=== PATIENT | male | born 1965 | race Caucasian/White ===

== ENCOUNTER 2016-12-18 13:32 | Outpatient (CLI) | payer OTHER | END 2016-12-18 13:33 | disposition home or self-care (01) | LOC: SC 13:32 | PROVIDERS: ATTEND Nurse Practitioner Family | DX: G47.33 Obstructive sleep apnea (adult) (pediatric) (principal) | CPT/HCPCS: 99212; 99214 ==

== ENCOUNTER 2017-04-05 14:38 | Emergency (ER) | payer OTHER ==
--- NOTE | 2017-04-05 14:57 | ED Physician Documentation ---
PD HPI ABD PAIN - Stated complaint Stated Complaint: ABD PX - Chief complaint Chief Complaint: Abd Pain - History obtained from History obtained from: Patient - History of Present Illness Timing - onset: Other (Developed left flank pain 6 days ago that has migrated to the left abdomen associated with mild nausea. Pain is mild narrowing declines pain medications but it has been severe. He notes no dysuria, hematuria, or constipation. No fevers. No history of renal colic.) Review of Systems Ten Systems: 10 systems reviewed and negative Constitutional: reports: Reviewed and negative Throat: denies: Dental pain / toothache, Sore throat Cardiac: denies: Chest pain / pressure, Palpitations Respiratory: denies: Dyspnea, Cough PD PAST MEDICAL HISTORY - Past Medical History Past Medical History: Yes Cardiovascular: Hypertension - Present Medications Home Medications: Ambulatory Orders Medication Instructions Recorded Confirmed HYDROcod/ACETAM 5/325 [[place] 5/325] 1 - 2 ea PO Q6H PRN #10 tablet 04/05/17 Simvastatin 20 mg PO DAILY 04/05/17 04/05/17 hydroCHLOROthiazide 25 mg PO DAILY 04/05/17 04/05/17 [Hydrochlorothiazide] - Allergies Allergies/Adverse Reactions: Allergies Allergy/AdvReac Type Severity Reaction Status Date / Time No Known Drug Allergies Allergy Verified 04/05/17 14:49 - Living Situation Living Situation: reports: With family - Social History Does the pt smoke?: No Does the pt have substance abuse?: No - Family History Family history: reports: Non contributory PD ED PE NORMAL - Vitals Vital signs reviewed: Yes - General General: Alert and oriented X 3, No acute distress - Cardiac Cardiac: RRR, No murmur - Respiratory Respiratory: No respiratory distress, Clear bilaterally - Abdomen Abdomen: Normal bowel sounds, Soft, Non tender - Back Back: No CVA TTP, No spinal TTP - Derm Derm: Normal color, Warm and dry - Extremities Extremities: No edema, No calf tenderness / cord - Neuro Neuro: Alert and oriented X 3, Normal speech - Psych Psych: Normal mood, Normal affect Results - Vitals Vitals: Vital Signs - 24 hr 04/05/17 04/05/17 14:46 15:49 Temperature 36.2 C L Heart Rate 89 86 Respiratory 18 14 Rate Blood Pressure 130/94 H 91/42 L O2 Saturation 99 96 Oxygen O2 Source Room air - Labs Labs: Laboratory Tests 04/05/17 04/05/17 04/05/17 14:15 15:28 15:28 WBC 9.9 RBC 5.39 Hgb 16.6 Hct 48.7 MCV 90.4 MCH 30.8 MCHC 34.1 RDW 12.8 Plt Count 194 MPV 7.7 Neut # 6.8 H Lymph # 2.4 [place] # 0.5 Eos # 0.0 Baso # 0.0 Absolute Nucleated RBC 0.00 Nucleated RBC % 0.0 Sodium 140 Potassium 3.7 Chloride 103 Carbon Dioxide 29 Anion Gap 8.0 BUN 21 H Creatinine 1.2 Estimated GFR (MDRD) 63 L Glucose 102 H Calcium 9.4 Total Bilirubin 0.3 AST 20 ALT 34 Alkaline Phosphatase 59 Total Protein 7.4 Albumin 4.4 Globulin 3.0 Albumin/Globulin Ratio 1.5 Lipase 19 L Urine Color YELLOW Urine Clarity CLEAR Urine pH 6.0 Ur Specific [place] 1.025 Urine Protein NEGATIVE Urine Glucose (UA) NEGATIVE Urine Ketones NEGATIVE Urine Occult Blood NEGATIVE Urine Nitrite NEGATIVE Urine Bilirubin NEGATIVE Urine Urobilinogen 0.2 (NORMAL) Ur Leukocyte Esterase NEGATIVE Ur Microscopic Review NOT INDICATED Urine Culture Comments NOT INDICATED PD MEDICAL DECISION MAKING - ED course ED course: 52-year-old gentleman with migratory flank pain most consistent with renal colic. No shingles rash. Examination of the abdomen is benign. CT is without evidence of renal colic and he has no hematuria. His labs are basically normal. I did discuss the incidental finding regarding the iliac bone with him and his family and follow-up was advised. 1 of the techs did document a blood pressure of 91/46, I was in the room shortly after this and repeated it, it was 136/76 I think that first reading was erroneous. Departure - Departure Disposition: 01 Home, Self Care Clinical Impression: Flank pain, acute Condition: Good Record reviewed to determine appropriate education?: Yes Instructions: ED Abdominal Pain Unkn Cause Prescriptions: HYDROcod/ACETAM 5/325 [[place] 5/325] 1 - 2 ea PO Q6H PRN #10 tablet PRN Reason: Pain Comments: Follow-up with your doctor, next available appointment. Discuss the abnormal CT with left posterior iliac bone sclerosis, she may want to perform further imaging on this, but as discussed I do not think it is related to your pain today which seems muscular. Return if worse or if any new symptoms develop, especially a rash over the area , fever, or vomiting.
[2017-04-05 15:14] LABS: BILIRUBIN,URINE NEGATIVE (NEGATIVE)
[2017-04-05 15:16] LABS: UA CHARGE (STRIP ONLY) YES; UR CULTURE IF IND NOT INDICATED
[2017-04-05 15:39] LABS: BASOPHILS % (AUTO) 0.4 %; EOSINOPHILS % (AUTO) 0.5 %; HCT - HEMATOCRIT 48.7 % (42.0-52.0); HGB - HEMOGLOBIN 16.6 g/dL (14.0-18.0); LYMPHOCYTES # (AUTO) 2.4 10^3/uL (1.5-3.5); LYMPHOCYTES % (AUTO) 24.7 %; MEAN CORPUSCULAR HEMOGLOBIN 30.8 pg (27.0-31.0); MEAN CORPUSCULAR HGB CONC 34.1 g/dL (32.0-36.0); MEAN CORPUSCULAR VOLUME 90.4 fL (80.0-94.0); MEAN PLATELET VOLUME 7.7 fL (7.4-11.4); MONOCYTES # (AUTO) 0.5 10^3/uL (0.0-1.0); MONOCYTES % (AUTO) 5.5 %; NEUTROPHILS # (AUTO) 6.8 10^3/uL (1.5-6.6); NEUTROPHILS % (AUTO) 68.9 %; RED BLOOD COUNT 5.39 10^6/uL (4.70-6.10); RED CELL DISTRIBUTION WIDTH 12.8 % (12.0-15.0); UNCORRECTED WHITE BLOOD COUNT 9.9 x10^3/uL; WHITE BLOOD COUNT 9.9 x10^3/uL (4.8-10.8)
--- NOTE | 2017-04-05 15:50 | CT Preliminary Report ---
Exam: CT ABDOMEN/PELVIS W/O IMPRESSION: 1. No calculi or evidence of obstruction along the genitourinary tracts. Within the limits of noncont rast examination, no alternate acute process identified to explain left-sided flank pain. 2. Ill-defined sclerosis in the left posterior iliac bone, nonspecific appearance. Please correlate w ith patient history. [facility] SITE ID: [id number]
[2017-04-05 15:51] LABS: ALBUMIN/GLOBULIN RATIO 1.5 (1.0-2.2); BILIRUBIN,TOTAL 0.3 mg/dL (0.2-1.0); CALCIUM 9.4 mg/dL (8.5-10.3); CREATININE 1.2 mg/dL (0.6-1.2); POTASSIUM 3.7 mmol/L (3.5-5.0); TOTAL PROTEIN 7.4 g/dL (6.7-8.2)
--- NOTE | 2017-04-05 15:53 | CT Report ---
EXAM: CT ABDOMEN AND PELVIS (CT KUB) EXAM DATE: 04/05/2017 03:13 PM. CLINICAL HISTORY: Left flank pain COMPARISONS: None. TECHNIQUE: Routine axial helical CT imaging was performed through the abdomen and pelvis without IV c ontrast. Reconstructions: Coronal and sagittal. In accordance with CT protocol optimization, one or more of the following dose reduction techniques w ere utilized for this exam: automated exposure control, adjustment of mA and/or KV based on patient s ize, or use of iterative reconstructive technique. FINDINGS: Lung Bases: Linear atelectasis or scarring in the right lower lobe base and inferior lingula. Right Kidney/Ureter: No stones, hydronephrosis, or hydroureter. No perinephric fat stranding. Left Kidney/Ureter: No stones, hydronephrosis, or hydroureter. No perinephric fat stranding. Other Solid Organs: Noncontrast images of the solid organs are grossly unremarkable. Gallbladder/Bile Ducts: Unremarkable. No visualized shadowing stones or hydronephrosis. Peritoneal Cavity: The bowel is grossly unremarkable, without evident focal wall thickening or adjace nt mesenteric fat stranding to suggest acute inflammatory process, or evidence of bowel obstruction. The appendix is normal. No free fluid, pneumoperitoneum, or tatiana adenopathy. Pelvic Organs: No bladder stones or wall thickening. Noncontrast images of the visualized pelvic orga ns are unremarkable. Vasculature: Trace atherosclerotic calcifications in the right common iliac and bilateral internal il iac arteries. Otherwise unremarkable. Bones: Ill-defined sclerosis in the left posterior iliac bone. Ibbw-[id number]-[id number] multilevel degenerati ve disk disease. Other: Tiny fat-containing umbilical hernia. IMPRESSION: 1. No calculi or evidence of obstruction along the genitourinary tracts. Within the limits of noncont rast examination, no alternate acute process identified to explain left-sided flank pain. 2. Ill-defined sclerosis in the left posterior iliac bone, nonspecific appearance. Please correlate w ith patient history. [facility] Referring Provider Line: [phone] SITE ID: [id number]
[2017-04-05] MEDS ORDERED: KETOROLAC 60 MG/2 ML VIAL IVP STA (16:11)
[2017-04-05] MEDS ORDERED: KETOROLAC 30 MG/ML VIAL ONE (16:36)
[2017-04-05 16:44] VITALS: BP 137/99
== END 2017-04-05 16:49 | disposition home or self-care (01) ==
LOC: ED 14:38
DX: R10.32 Left lower quadrant pain (principal); I10 Essential (primary) hypertension
CPT/HCPCS: 36415; 74176; 80053; 81001; 81003; 83690; 85025; 87086; 96374; 99283; 99284

== ENCOUNTER 2017-07-09 13:39 | Outpatient (CLI) | payer OTHER | END 2017-07-09 13:40 | disposition home or self-care (01) | LOC: SC 13:39 | PROVIDERS: ATTEND Nurse Practitioner Family | DX: G47.33 Obstructive sleep apnea (adult) (pediatric) (principal) | CPT/HCPCS: 99212; 99214 ==

== ENCOUNTER 2018-07-20 15:24 | Outpatient (CLI) | payer OTHER | END 2018-07-20 15:25 | disposition home or self-care (01) | LOC: SC 15:24 | PROVIDERS: ATTEND Nurse Practitioner Family | DX: G47.33 Obstructive sleep apnea (adult) (pediatric) (principal) | CPT/HCPCS: 99212; 99214 ==

== ENCOUNTER 2020-08-15 16:22 | Outpatient (CLI) | payer OTHER ==
--- NOTE | 2020-08-15 16:59 | SLEEP CARE CONSULTATION ---
Information from patient questionnaire entered by Javier Hernandez. I have reviewed and concur with the information entered by Javier Hernandez. This document represents the service I personally performed and the decisions made by , Susan Norman ARNP. History of Present Illness Service Date and Time: 08/15/2020 1622 Previous diagnosis: Mild, Severe, Obstructive Sleep Apnea-Hypopnea Syndrome, Central Sleep Apnea-Hypopnea Syndrome AHI: 51.8 Reason for follow up: annual (Last seen 08/2019) Equipment type: CPAP Equipment obtained from: [employer] ([place]; getting supplies as needed) Mask style: Nasal (over the nose) Backup mask available: Yes (old mask) Last cushion change: 10 days ago Year and Where: 2015 [facility] additional information: MAGALY KELLER was diagnosed to have mild/severe, AHI 51.8, obstructive/central sleep apnea-hypopnea syndrome and returned today for CPAP therapy annual follow- up. CPAP Compliance Data - Data Reviewed with Patient Average duration of nightly device use: 4 hours 26 minutes Compliance rate %: 76.1 Current pressure setting (cmH2O): 10 Average residual AHI: 2.9 Central apnea: 1.5 Obstructive apnea: 0.4 Hypopnea: 1.0 Average large leak: 2 seconds Subjective Patient concerns: reports: air blowing in eyes (improves with replaces mask for new one). denies: aerophagia, mask discomfort, mask leak noise, condensation in mask/hose, nasal congestion, dry mouth, nose, throat, epistaxis, other Observed to snore while using device: No Current pressure setting perceived as: comfortable On therapy, patient: reports: sleeping better, awakening more refreshed, being more awake and alert during the day, more rested overall. denies: drowsiness while driving Initial [place] Sleepiness Scale score: 13 (in 2016) Current [place] Sleepiness Scale score: 9 Allergies and Home Medications Home medication list reviewed: Yes (no new medications) Review of Systems Review of systems same as previous: Yes (no changes) Physical Exam Heart Rate: 91 O2 Saturation: 96 Height: 5 ft 9 in Weight: 238 lb Weight change since last visit: 10 gain Body Mass Index: 35.1 BMI Classification: Obese Impression and Plan 1. Obstructive/Central Sleep Apnea-Hypopnea Syndrome, mild/severe, with fair treatment compliance and good apnea control. On CPAP therapy, the patient has better sleep quality and is more rested overall. He gets air leaks when time to change out his mask. He has not been washing his mask daily. Mask leaks can be reduced by washing mask daily and changing mask cushions more frequently to improve mask seal and comfort. Patient has gained weight. Currently patients BMI is 35.1. Obesity increases the risk of apnea, CPAP pressure requirements and overall health risks especially cardiovascular and diabetes. Thus patient is advised to lose weight. Weight loss can be done with reducing portion size, reducing refined foods and balancing content with vegetables, fruit and whole grain foods. He voiced understanding. Patient's apnea severity and rationale for treatment to reduce apnea, improve sleep quality and reduce cardiovascular and cerebrovascular events was reviewed. I also reviewed the benefit of consistent device use of CPAP for hypertension and migraines. * Continue auto CPAP pressure at 10 cmH2O * Notify me if snoring with mask or feeling that the pressure is too much or too little * Attempt to lose weight * Call this office if any problems using CPAP * Return for follow up in 1 year, or sooner if concerns arise Counseling Topics: Spare mask, Weight loss health impact Visit Type: In Office Time Spent with Patient (minutes): 17 Provider Statement: I spent 100% of the Face to Face Visit with the patient with greater than 50% spent counseling the patient and coordination of care.
== END 2020-08-15 16:23 | disposition home or self-care (01) ==
LOC: SC 16:22
PROVIDERS: ATTEND Nurse Practitioner Family
DX: G47.33 Obstructive sleep apnea (adult) (pediatric) (principal); G47.31 Primary central sleep apnea; E66.9 Obesity, unspecified; Z68.35 Body mass index [BMI] 35.0-35.9, adult
CPT/HCPCS: 99212

== ENCOUNTER 2021-01-23 04:23 | Emergency (ER) | payer OTHER ==
[2021-01-23] MEDS ORDERED: SODIUM CHLORIDE 0.9% 1,000 ML IV STA (04:55)
--- NOTE | 2021-01-23 04:59 | ED Physician Documentation ---
History of Present Illness - Stated complaint Stated Complaint: HIGH BP/HR, DIZZY, NAUSEA - Chief complaint Chief Complaint: Cardiac - History obtained from History obtained from: Patient - Additonal information Additional information: 55-year-old man with history of diabetes, high blood pressure, sleep apnea presents with multiple episodes of lightheadedness, nausea, and feeling of the left side of his head being different from the right side starting at 3 AM. Patient states he went to bed at 930 feeling okay and woke up at 2 AM, began to feel his symptoms around 3 and took his blood pressure 4 5 times it was mildly elevated with systolic blood pressure in the 140s 150s. His heart rate was in the 120s so he came to the hospital. Denies chest pain, shortness of breath, fever, sick contacts, neck pain or headache. He did have a 9 out of 10 headache yesterday in the bilateral occipital area that resolved on its own. At the patient started Metformin 3 weeks ago and initially had an upset stomach related to it that resolved. +vaccinated against covid-19. no known exposure/sick contacts. Review of Systems Ten Systems: 10 systems reviewed and negative Constitutional: denies: Fever, Chills Eyes: denies: Decreased vision, Photophobia Cardiac: denies: Chest pain / pressure Respiratory: denies: Dyspnea GI: reports: Nausea. denies: Abdominal Pain, Vomiting, Diarrhea Musculoskeletal: denies: Neck pain Neurologic: reports: Headache, Other (Sensation of the left side of the head being different from the right side) PD PAST MEDICAL HISTORY - Past Medical History Cardiovascular: Hypertension - Past Surgical History Past Surgical History: No - Present Medications Home Medications: Ambulatory Orders Medication Instructions Recorded Confirmed HYDROcod/ACETAM 5/325 [[place] 5/325] 1 - 2 ea PO Q6H PRN #10 tablet 04/05/17 Simvastatin 20 mg PO DAILY 04/05/17 04/05/17 hydroCHLOROthiazide 25 mg PO DAILY 04/05/17 04/05/17 [Hydrochlorothiazide] - Allergies Allergies/Adverse Reactions: Allergies Allergy/AdvReac Type Severity Reaction Status Date / Time No Known Drug Allergies Allergy Verified 04/05/17 14:49 - Social History Does the pt smoke?: No Smoking Status: Never smoker Does the pt drink ETOH?: No Does the pt have substance abuse?: No - Immunizations Immunizations are current?: Yes PD ED PE NORMAL - Vitals Vital signs reviewed: Yes - General General: Alert and oriented X 3, No acute distress, Well developed/nourished - HEENT HEENT: Atraumatic, PERRL, EOMI, Ears normal, Moist mucous membranes, Pharynx benign - Neck Neck: Supple, no meningeal sign - Cardiac Cardiac: RRR - Respiratory Respiratory: No respiratory distress, Clear bilaterally - Abdomen Abdomen: Non tender, Non distended - Derm Derm: Normal color, Warm and dry - Extremities Extremities: No deformity - Neuro Neuro: Alert and oriented X 3, advertising copy writer 2-12 intact, No motor deficit, No sensory deficit, Normal speech, Other (Cerebellar testing, gait, strength within normal limits) Results - Vitals Vitals: Vital Signs - 24 hr 01/23/21 01/23/21 01/23/21 04:38 04:40 05:22 Temperature 35.8 C L Heart Rate 103 H 89 Heart Rate [ 102 H Sitting] Heart Rate [ Standing] Heart Rate [ Supine] Respiratory 18 18 Rate Blood Pressure 151/94 H 132/93 H Blood Pressure 129/94 H [Sitting] Blood Pressure [Standing] Blood Pressure [Supine] O2 Saturation 96 97 01/23/21 01/23/21 05:23 05:56 Temperature Heart Rate 88 Heart Rate [ Sitting] Heart Rate [ 103 H Standing] Heart Rate [ 92 Supine] Respiratory 12 Rate Blood Pressure 138/102 H Blood Pressure [Sitting] Blood Pressure 138/102 H [Standing] Blood Pressure 135/88 H [Supine] O2 Saturation 95 Oxygen O2 Source Room air - EKG (time done) 0434 Rate: Rate (enter#) (97) Rhythm: NSR [place]: Normal Intervals: Normal OK QRS: Normal Ischemia: Normal ST segments - Labs Labs: Laboratory Tests 01/23/21 01/23/21 05:00 05:00 WBC 7.9 RBC 5.39 Hgb 16.6 Hct 49.9 MCV 92.6 MCH 30.8 MCHC 33.3 RDW 12.9 Plt Count 210 MPV 9.4 Neut # (Auto) 6.0 Lymph # (Auto) 1.3 L [place] # (Auto) 0.4 Eos # (Auto) 0.1 Baso # (Auto) 0.0 Absolute Nucleated RBC 0.00 Nucleated RBC % 0.0 Sodium 143 Potassium 3.7 Chloride 102 Carbon Dioxide 27 Anion Gap 14.0 H BUN 21 H Creatinine 1.2 Estimated GFR (MDRD) 62 L Glucose 129 H Calcium 9.4 Total Bilirubin 0.7 AST 20 ALT 32 Alkaline Phosphatase 54 Total Protein 7.1 Albumin 4.6 Globulin 2.5 Albumin/Globulin Ratio 1.8 Lipase 29 PD MEDICAL DECISION MAKING - ED course Complexity details: re-evaluated patient ED course: 55-year-old man presents with concerns about headache, lightheadedness, nausea and sensation of the left side of his head being different from the right side. No objective neurological deficits, normal physical exam. Vital signs within normal limits with the exception of borderline tachycardia to 104 intermittently. He had routine bloodwork 1 month ago, but since he has new symptoms since then and is extremely anxious about them I offered repeat bloodwork which he accepted. Patient also extremely concerned about his brain and requested further workup including head CT which I will oblige. Patient declined pain meds, stating he has no headache at present. also declined nausea meds. On reevaluation, patient still declining medications. discussed that his labwork and head CT is unremarkable. Patient now concerned he has a blood clot. He denies hemoptysis, SOA, CP, pleurisy, leg swelling, calf pain, bedrest, hormone use, active cancer, recent surgery, or travel. He does however have intermittent tingling/burning in the left lateral thigh and tremor in the left hand intermittent for the past year. I told him he is unlikely to have a blood clot at this time. Patient ambulatory to the bathroom and stating he feels terrible and thinks he's going to pass out. Last echo 6 years ago. d/w Dr. Guerin for possible observation for echo. Dr. Guerin at bedside, d/w patient and possibility of vertigo or atypical migraine as etiology of symptoms. Dr. Guerin feels noncardiac and not a candidate for observation at this time. Patient still very concerned but agreeable to trial meclizine and toradol and if no improvement we will reconsult hospitalist for observation admission. Patient endorsed to Dr. Howard, incoming daytime MD for further management and care. Departure - Departure Clinical Impression: Nausea, Dizziness
[2021-01-23 05:10] LABS: BASOPHILS % (AUTO) 0.4 %; EOSINOPHILS # (AUTO) 0.1 10^3/uL (0.0-0.7); EOSINOPHILS % (AUTO) 0.9 %; HCT - HEMATOCRIT 49.9 % (42.0-52.0); HGB - HEMOGLOBIN 16.6 g/dL (14.0-18.0); LYMPHOCYTES # (AUTO) 1.3 10^3/uL (1.5-3.5); MEAN CORPUSCULAR HEMOGLOBIN 30.8 pg (27.0-31.0); MEAN CORPUSCULAR HGB CONC 33.3 g/dL (32.0-36.0); MEAN CORPUSCULAR VOLUME 92.6 fL (80.0-94.0); MEAN PLATELET VOLUME 9.4 fL (7.4-11.4); MONOCYTES # (AUTO) 0.4 10^3/uL (0.0-1.0); MONOCYTES % (AUTO) 5.1 %; NEUTROPHILS % (AUTO) 76.3 %; PLT - PLATELET COUNT 210 10^3/uL (130-450); RED BLOOD COUNT 5.39 10^6/uL (4.70-6.10); RED CELL DISTRIBUTION WIDTH 12.9 % (12.0-15.0); WHITE BLOOD COUNT 7.9 x10^3/uL (4.8-10.8)
[2021-01-23 05:24] LABS: ALBUMIN 4.6 g/dL (3.2-5.5); ALBUMIN/GLOBULIN RATIO 1.8 (1.0-2.2); BILIRUBIN,TOTAL 0.7 mg/dL (0.2-1.0); CALCIUM 9.4 mg/dL (8.5-10.3); CREATININE 1.2 mg/dL (0.6-1.2); POTASSIUM 3.7 mmol/L (3.5-5.0); TOTAL PROTEIN 7.1 g/dL (6.7-8.2)
[2021-01-23] MEDS ORDERED: MECLIZINE 12.5 MG TABLET PO STA (06:38)
[2021-01-23] MEDS ORDERED: KETOROLAC 15 MG/ML VIAL IVP STA (06:39)
--- NOTE | 2021-01-23 08:12 | CT Report ---
PROCEDURE: HEAD WO INDICATIONS: Severe headache (02/15). TECHNIQUE: Noncontrast 4.5 mm thick angled axial sections acquired from the foramen magnum to the vertex. For r adiation dose reduction, the following was used: automated exposure control, adjustment of mA and/or kV according to patient size. COMPARISON: None. FINDINGS: Image quality: Excellent. CSF spaces: Basal cisterns are patent. No extra-axial fluid collections. Ventricles are normal in size and shape. Brain: No midline shift. No intracranial masses or hemorrhage. Saunders-white matter interface is norm al. Skull and face: Calvarium and visualized facial bones are intact, without suspicious lesions. Sinuses: Visualized sinuses and mastoids are clear. IMPRESSION: No acute intracranial finding. No significant change from preliminary report. Reviewed by: Elfego Rizo MD on 01/23/2021 8:10 AM PDT Approved by: Elfego Rizo MD on 01/23/2021 8:10 AM PDT Station ID: [id number]
[2021-01-23 08:40] LABS: CORONAVIRUS 229E-RESP PCR NOT DETECTED; CORONAVIRUS HKU1-RESP PCR NOT DETECTED; CORONAVIRUS NL63-RESP PCR NOT DETECTED; CORONAVIRUS OC43-RESP PCR NOT DETECTED; HUMAN METAPNEUMOVIRUS NOT DETECTED; RHINOVIRUS/ENTEROVIRUS NOT DETECTED; SARS-CoV-2 -RESP PCR PANEL NOT DETECTED
[2021-01-23 08:41] LABS: B. PARAPERTUSSIS- RESP PCR PAN NOT DETECTED; B. PERTUSSIS- RESP PCR PANEL NOT DETECTED; C. PNEUMONIAE- RESP PCR PANEL NOT DETECTED; INFLUENZA A- RESP PCR PANEL NOT DETECTED; INFLUENZA B - RESP PCR PANEL NOT DETECTED; M. PNEUMONIAE- RESP PCR PANEL NOT DETECTED; PARAINFLUENZA VIRUS 1 NOT DETECTED; PARAINFLUENZA VIRUS 2 NOT DETECTED; PARAINFLUENZA VIRUS 3 NOT DETECTED; PARAINFLUENZA VIRUS 4 NOT DETECTED; RSV- RESP PCR PANEL NOT DETECTED
[2021-01-23 08:42] VITALS: BP 138/90
== END 2021-01-23 09:32 | disposition home or self-care (01) ==
LOC: ED 04:23
DX: R42 Dizziness and giddiness (principal); R11.0 Nausea; E11.9 Type 2 diabetes mellitus without complications; I10 Essential (primary) hypertension; Z20.822 Contact with and (suspected) exposure to COVID-19
CPT/HCPCS: 0202U; 36415; 70450; 80053; 83690; 83880; 85025; 96374; 99284; A9270

== ENCOUNTER 2021-10-07 14:46 | Outpatient (CLI) | payer OTHER ==
[2021-10-07 15:38] VITALS: BP 126/84
--- NOTE | 2021-10-07 15:38 | SLEEP CARE CONSULTATION ---
Information from patient questionnaire entered by Radha Bush. I have reviewed and concur with the information entered by Radha Bush. This document represents the service I personally performed and the decisions made by me, Estephania Bonner MD, [facility]. History of Present Illness Service Date and Time: 10/07/2021 1446 Previous diagnosis: Mild, Severe, Obstructive Sleep Apnea-Hypopnea Syndrome, Central Sleep Apnea-Hypopnea Syndrome AHI: 51.8 Reason for follow up: annual (LAST SEEN ON 08/15/2020) Equipment type: CPAP Equipment obtained from: [employer] ([place]; getting supplies as needed) Mask style: Nasal (over the nose) Year and Where: 2015 [facility] HPI additional information: Mr. Roblero was diagnosed to have severe obstructive sleep apnea-hypopnea syndrome and returns today for follow up of CPAP therapy. The patient purchased the device from [employer] but is getting supplies from [employer]. He was fitted with a nasal mask. He uses the device nightly and all through the night. The compliance report shows that he uses the device 138 nights out of the past 180 nights, averaging 4.5 hours a night. The > 4 hour compliance rate for the past 30 days is 67%. He complains of no particular problem with the device such as soreness on the face, dry nose, epistaxis, nasal congestion or headache. He thinks that the pressure of 10 cmH2O is comfortable. On the CPAP therapy he notices improvement in his sleep quality, and that he wakes up feeling fresher in the morning and more awake/alert during the day. His notices no snore at all. [place] Sleepiness Scale score is 5. The average residual AHI is 3.6; and average time in large leak per day is 2 seconds a night. Sleep Study - Results Year and Where: 2015 [facility] Subjective Initial [place] Sleepiness Scale score: 13 (in 2016) Allergies and Home Medications Drug allergies reviewed: Yes Home medication list reviewed: Yes Allergy and home medication list: Allergies No Known Drug Allergies Allergy (Verified 04/05/17 14:49) Review of Systems Review of systems same as previous: Yes Physical Exam Vital signs obtained and entered by: Gil BUSH MA Blood Pressure: 126/84 (MANUAL) Cuff size: regular Heart Rate: 82 O2 Saturation: 97 Height: 5 ft 9 in Weight: 496 lb 0.641 oz Body Mass Index: 73.2 BMI Classification: Morbidly Obese Impression and Plan IMPRESSION: 1. Obstructive Sleep Apnea-Hypopnea Syndrome, severe, with the patient continuing to do well on nasal CPAP therapy. He has slightly [id number] compliance but significant clinical benefits. The current pressure appears effective and comfortable. Overall, he is very satisfied with treatment and plans to continue with it long-term. No adjustment is necessary today. Because the CPAP is on the recall list is now older than the useful life of 5 years, I will order the patient a new one and make it a [employer]Med AirSense 11 set at 7 - 11 cmH2O. PLAN: 1. Prescription made for an autoCPAP, heated humidifier, and related supplies. 2. Try to lose weight 3. Return for follow up after one month of using the new CPAP. Counseling Topics: Weight control Prescriptions: Auto CPAP Follow up with Sleep Care in: 1-2 months Visit Type: In Office Time Spent with Patient (minutes): 15 Provider Statement: I spent 100% of the Face to Face Visit with the patient with greater than 50% spent counseling the patient and coordination of care.
== END 2021-10-07 14:47 | disposition home or self-care (01) ==
LOC: SC 14:46
PROVIDERS: ATTEND Internal Medicine Pulmonary Disease
DX: G47.33 Obstructive sleep apnea (adult) (pediatric) (principal); E66.01 Morbid (severe) obesity due to excess calories; Z68.45 Body mass index [BMI] 70 or greater, adult
CPT/HCPCS: 99212

== ENCOUNTER 2022-05-05 10:11 | Outpatient (CLI) | payer OTHER ==
--- NOTE | 2022-05-05 10:33 | SLEEP CARE CONSULTATION ---
Information from patient questionnaire entered by Medina Lowry. I have reviewed and concur with the information entered by Medina Lowry. This document represents the service I personally performed and the decisions made by me, Estephania Bonner MD, [facility]. History of Present Illness Service Date and Time: 05/05/2022 1011 Previous diagnosis: Mild, Severe, Obstructive Sleep Apnea-Hypopnea Syndrome, Central Sleep Apnea-Hypopnea Syndrome AHI: 51.8 Reason for follow up: first compliance Equipment type: CPAP (DREAM STATION) Equipment obtained from: [facility] [employer] ([place]; getting supplies as needed) Mask style: Nasal (over the nose) Year and Where: 2015 [facility] [place] HPI additional information: Mr. Roblero was diagnosed to have severe obstructive sleep apnea-hypopnea syndrome and returns today for follow up of CPAP therapy. The patient recently acquired a new ResMed AirSense 11 from [facility] [employer]. He was fitted with a nasal mask. He uses the device nightly and all through the night. The compliance report shows that he uses the device 52 nights out of the past 60 nights, averaging 5 hours a night. The > 4 hour compliance rate for the past 60 days is 77%. He complains of no particular problem with the device such as soreness on the face, dry nose, epistaxis, nasal congestion or headache. He thinks that the pressure of 7 - 11 cmH2O is comfortable (his old [employer] DreamStation was set on 10 cmH2O). On the CPAP therapy he notices improvement in his sleep quality, and that he wakes up feeling fresher in the morning and more awake/alert during the day. His notices no snore at all. [place] Sleepiness Scale score is 5. The average residual AHI is 1.5; and average air leak is 0.5 L/minute. Sleep Study - Results Year and Where: 2015 [facility] CPAP Compliance Data - Data Reviewed with Patient Average duration of nightly device use: 4HRS, 42MIN, 35SEC Compliance rate %: 77.8 (08/18/2021-02/13/2022) Current pressure setting (cmH2O): 10 Average residual AHI: 3.7 Subjective Initial [place] Sleepiness Scale score: 13 (in 2015) Current [place] Sleepiness Scale score: 5 (05/05/2022) Allergies and Home Medications Drug allergies reviewed: Yes Home medication list reviewed: Yes Allergy and home medication list: Allergies No Known Drug Allergies Allergy (Verified 04/05/17 14:49) Review of Systems Review of systems same as previous: Yes Physical Exam Vital signs obtained and entered by: MEDINA Esparza MA Blood Pressure: 130/90 (LEFT ARM) Cuff size: regular Heart Rate: 87 O2 Saturation: 94 Height: 5 ft 9 in Weight: 236 lb 6.4 oz Body Mass Index: 34.9 BMI Classification: Obese Impression and Plan IMPRESSION: 1. Obstructive Sleep Apnea-Hypopnea Syndrome, severe, with the patient continuing to do well on nasal CPAP therapy. He has good compliance. The current pressure setting appears effective and comfortable. His mask fits well. No adjustment is necessary today. PLAN: 1. Continue with autoCPAP set at 7 11 cmH2O. 2. Try to lose weight 3. Return for follow up in a year or earlier if there is any problem. Continue with device pressure at (cmH2O): 7 - 11 Counseling Topics: Weight control Follow up with Sleep Care in: 1 year Visit Type: In Office Time Spent with Patient (minutes): 15 Provider Statement: I spent 100% of the Face to Face Visit with the patient with greater than 50% spent counseling the patient and coordination of care.
[2022-05-05 10:46] VITALS: BP 130/90
== END 2022-05-05 10:12 | disposition home or self-care (01) ==
LOC: SC 10:11
PROVIDERS: ATTEND Internal Medicine Pulmonary Disease
DX: G47.33 Obstructive sleep apnea (adult) (pediatric) (principal); E66.9 Obesity, unspecified; Z68.34 Body mass index [BMI] 34.0-34.9, adult
CPT/HCPCS: 99212

== ENCOUNTER 2023-10-12 12:52 | Outpatient (CLI) | payer OTHER ==
--- NOTE | 2023-10-12 22:14 | SLEEP CARE CONSULTATION ---
Information from patient questionnaire entered by Medina Lowry. I have reviewed and concur with the information entered by Medina Lowry. This document represents the service I personally performed and the decisions made by me, Estephania Bonner MD, [facility]. History of Present Illness Service Date and Time: 10/12/2023 1252 Previous diagnosis: Mild, Severe, Obstructive Sleep Apnea-Hypopnea Syndrome, Central Sleep Apnea-Hypopnea Syndrome AHI: 51.8 Reason for follow up: annual (COMPLETED 04/2022) Equipment type: CPAP (RESMED) Equipment obtained from: [employer] ([place]; getting supplies as needed) Mask style: Nasal (over the nose) Year and Where: 2015 [facility] HPI additional information: Mr. Roblero was diagnosed to have severe obstructive sleep apnea-hypopnea syndrome and returns today for follow up of CPAP therapy. He was last seen 2 years ago. The patient uses a ResMed AirSense 11 from [employer]. He was fitted with a nasal mask. He uses the device nightly and all through the night. The compliance report shows that he uses the device 297 nights out of the past 365 nights, averaging 4.7 hours a night. The > 4 hour compliance rate for the past 60 days is 70%. He complains of no nasal congestion. He thinks that the pressure of 7 - 11 cmH2O is comfortable (his old [employer] DreamStation was set on 10 cmH2O). On the CPAP therapy he notices improvement in his sleep quality, and that he wakes up feeling fresher in the morning and more awake/alert during the day. His notices no snore at all. [place] Sleepiness Scale score is 6. The average residual AHI is 5.3; and average air leak is 0.8 L/minute. Sleep Study - Results Year and Where: 2015 [facility] CPAP Compliance Data - Data Reviewed with Patient Average duration of nightly device use: 4HRS 41MINS Compliance rate %: 70 (10/08/22-10/07/23) Current pressure setting (cmH2O): 7-11 Average residual AHI: 5.3 Subjective Initial [place] Sleepiness Scale score: 13 (in 2015) Current [place] Sleepiness Scale score: 6 (10/12/23) Allergies and Home Medications Drug allergies reviewed: Yes Home medication list reviewed: Yes Allergy and home medication list: Allergies No Known Drug Allergies Allergy (Verified 10/08/23 11:57) Review of Systems Review of systems same as previous: Yes Physical Exam Vital signs obtained and entered by: MEDINA Esparza MA Blood Pressure: 147/95 (RIGHT ARM) Cuff size: regular Heart Rate: 92 O2 Saturation: 95 Height: 5 ft 9 in Weight: 243 lb 9.6 oz Body Mass Index: 35.9 BMI Classification: Obese Impression and Plan IMPRESSION: 1. Obstructive Sleep Apnea-Hypopnea Syndrome, severe, with the patient continuing to do well on nasal CPAP therapy. He has good compliance. The current pressure setting appears effective and comfortable. His mask fits well. Because the residual AHI has crept up slightly, I will raise the pressure range. For his nasal congestion, he should increase the heated humidifier setting. PLAN: 1. AutoCPAP raised to 7 13 cmH2O. 2. Increase the humidity. 3. Try to lose weight. 4. Return for follow up in a year or earlier if there is any problem. Counseling Topics: Weight control Follow up with Sleep Care in: 1 year Follow up recommended for: Weight management Visit Type: In Office Time Spent with Patient (minutes): 15 Provider Statement: I spent 100% of the Face to Face Visit with the patient with greater than 50% spent counseling the patient and coordination of care.
[2023-10-12 22:18] VITALS: BP 147/95; O2SAT 95
== END 2023-10-12 12:53 | disposition home or self-care (01) ==
LOC: SC 12:52
PROVIDERS: ATTEND Internal Medicine Pulmonary Disease
DX: G47.33 Obstructive sleep apnea (adult) (pediatric) (principal); E66.9 Obesity, unspecified; Z68.35 Body mass index [BMI] 35.0-35.9, adult
CPT/HCPCS: 99212

== ENCOUNTER 2023-12-05 09:21 | Outpatient (CLI) | payer OTHER ==
--- NOTE | 2023-12-07 14:21 | MRI Report ---
PROCEDURE: Lumbar Spine WO INDICATIONS: LOW BACK PAIN TECHNIQUE: Noncontrast sagittal T1 spin echo and T2 fast echo, sagittal STIR, axial T1 and T2 fast spin echo thr ough the lumbar spine. In cases with scoliosis, additional coronal T2 fast spin echo may be performe d. COMPARISON: None available FINDINGS: Image quality: Excellent. Alignment and Curvature: Grade 1 retrolisthesis of L1 on L2. Bone Marrow: Marrow is of normal overall signal. No acute vertebral body compression fractures. Spinal Cord: Conus medullaris terminates at the L2 level. Visualized cord demonstrates normal signa l and size. Paraspinous Soft Tissues: No paravertebral masses. T12-L1: Schmorl's nodes in the endplates. Broad-based disc bulge. Disc desiccation. L1-L2: Broad-based disc bulge, disc desiccation, ligament of hypertrophy, facet effusions. Mild to moderate spinal canal narrowing and mild bilateral neural foraminal narrowing. L2-L3: Broad-based disc bulge, disc desiccation, ligament of flavum hypertrophy, facet effusions. Moderate to severe spinal canal narrowing. Moderate right and mild left neural foraminal narrowing. L3-L4: Broad-based disc bulge, ligament flavum hypertrophy, facet hypertrophy. Disc desiccation. Mi ld spinal canal narrowing. L4-L5: Broad-based disc bulge, ligamentum flavum hypertrophy, small facet effusions, facet hypertro phy. Moderate spinal canal narrowing. Mild to moderate bilateral neural foraminal narrowing. Disc tess iccation. L5-S1: Broad-based disc bulge, facet hypertrophy. Moderate to severe right neural foraminal narrowi ng and mild left neural foraminal narrowing. IMPRESSION: Multilevel degenerative disc disease and facet arthrosis. Of note: Up to moderate spinal canal narrowing at L4-5. Up to moderate to severe neural foraminal narrowing at L5-S1. Reviewed by: Chato Torres MD on 12/07/2023 2:20 PM PDT Approved by: Chato Torres MD on 12/07/2023 2:20 PM PDT Station ID: [id number]
== END 2023-12-05 09:22 | disposition home or self-care (01) ==
LOC: DI 09:21
PROVIDERS: ATTEND Nurse Practitioner Family
DX: M51.36 Other intervertebral disc degeneration, lumbar region (principal); M48.061 Spinal stenosis, lumbar region without neurogenic claudication; M51.37 Other intervertebral disc degeneration, lumbosacral region; M48.07 Spinal stenosis, lumbosacral region; M47.816 Spondylosis without myelopathy or radiculopathy, lumbar region; M47.817 Spondylosis without myelopathy or radiculopathy, lumbosacral region

== ENCOUNTER 2024-01-02 06:55 | Outpatient (CLI) | payer OTHER ==
[2024-01-02] MEDS ORDERED: GADOTERATE MEGLUMINE 5 MMOL/10 ML VIAL ONE (07:13)
[2024-01-02] MEDS ORDERED: GADOTERATE MEGLUMINE 10 MMOL/20 ML VIAL ONE (07:13)
[2024-01-02 07:41] LABS: CREATININE 1.2 mg/dL (0.6-1.3)
[2024-01-02] MEDS: GADOTERATE MEGLUMINE 10 MMOL/20 ML VIAL IVP ONE (09:19)
--- NOTE | 2024-01-04 09:59 | MRI Report ---
PROCEDURE: Femur/Thigh LT W/WO INDICATIONS: L UPPER THIGH MASS CONTRAST: CLARISCAN 21.8 ML TECHNIQUE: Noncontrast coronal T1 spin echo and STIR, sagittal T1 spin echo with fat saturation and STIR, axial T1 spin echo and T2 fast spin echo with fat saturation. After the administration of contrast, axial/ sagittal/coronal T1 spin echo with fat saturation through the left femur. COMPARISON: None. FINDINGS: Image quality: Excellent. Bones: The visualized bone marrow demonstrates normal signal on all sequences. The overlying cortex appears intact. No abnormal intraosseous enhancement. Soft tissues: Mild tendinosis of the right hamstring tendon at the ischial tuberosity insertion. Musc les are normal in signal. No soft tissue mass. No significant subcutaneous edema. Other soft tissue findings: Hypertrophic nodules is seen in the prostate. No left inguinal lymphadeno aubree. IMPRESSION: No mass in the left thigh. Further evaluation with targeted ultrasound can be considere d if there is palpable concern. Reviewed by: Scarlett Conner MD on 01/04/2024 9:57 AM PDT Approved by: Scarlett Conner MD on 01/04/2024 9:57 AM PDT Station ID: [id number]
== END 2024-01-02 06:56 | disposition home or self-care (01) ==
LOC: LAB 06:55
PROVIDERS: ATTEND Surgery
DX: R10.32 Left lower quadrant pain (principal)
CPT/HCPCS: 36415; 73720; 82565; A9575

== ENCOUNTER 2024-02-15 15:04 | Outpatient (CLI) | payer OTHER ==
--- NOTE | 2024-02-16 09:58 | Ultrasound Report ---
PROCEDURE: Extremity Soft Tissue Limited INDICATIONS: THIGH MASS TECHNIQUE: Real-time scanning was performed of the left upper thigh, with image documentation. COMPARISON: Left femur MRI 01/02/2024 FINDINGS: No sonographic abnormality is seen at the patient indicated area of concern in the left in guinal/upper thigh region. No cystic or solid mass identified. No lymphadenopathy. IMPRESSION: No sonographic abnormality identified at the palpable area of concern. Reviewed by: Luis Graham MD on 02/16/2024 8:57 AM [facility] Approved by: Luis Graham MD on 02/16/2024 8:57 AM [facility] Station ID: [id number]
== END 2024-02-15 15:05 | disposition home or self-care (01) ==
LOC: DI 15:04
PROVIDERS: ATTEND Nurse Practitioner Family
DX: M79.89 Other specified soft tissue disorders (principal); R22.32 Localized swelling, mass and lump, left upper limb